=== PATIENT | male | born 1960 | race Caucasian/White ===

== ENCOUNTER 2022-09-02 10:06 | Inpatient (IN) | payer OTHER ==
[2022-09-02 10:28] VITALS: BMI 27.8
[2022-09-02] MEDS ORDERED: BENZOCAINE/MENTHOL (CHLORASEPTIC ) LOZENGE MM PRN (12:01)
[2022-09-02] MEDS ORDERED: ACETAMINOPHEN 325 MG TABLET (FP) PO PRN (12:01)
[2022-09-02] MEDS ORDERED: NALOXONE HCL 0.4 MG/ML VIAL IM PRN (12:01)
[2022-09-02] MEDS ORDERED: LOPERAMIDE HCL 2 MG CAPSULE PO PRN (12:01)
[2022-09-02] MEDS ORDERED: NALOXONE HCL (KLOXXADO) 8 MG SPRAY NS PRN (12:01)
[2022-09-02] MEDS ORDERED: hydrOXYzine PAMOATE 25 MG CAPSULE (FP) PO PRN (12:01)
[2022-09-02] MEDS ORDERED: IBUPROFEN 400 MG TABLET (FP) PO PRN (12:01)
[2022-09-02] MEDS ORDERED: METHOCARBAMOL 500 MG TABLET PO PRN (12:01)
[2022-09-02] MEDS ORDERED: guaiFENesin 600 MG TABLET.ER (FP) PO PRN (12:01)
[2022-09-02] MEDS ORDERED: BISMUTH SUBSALICYLATE 262 MG/15 ML BTL PO PRN (12:01)
[2022-09-02] MEDS ORDERED: NICOTINE 10 MG CARTRIDGE (INHALER) IH PRN (12:01)
[2022-09-02] MEDS ORDERED: POLYETHYLENE GLYCOL (HEALTHYLAX) 3350 17 GM PACKET PO PRN (12:01)
[2022-09-02] MEDS ORDERED: MAG HYDROX/AL HYDROX/SIMETH 30 ML UNIT-DOSE CUP PO PRN (12:01)
[2022-09-02] MEDS ORDERED: BENZONATATE 200 MG CAPSULE PO PRN (12:01)
[2022-09-02] MEDS ORDERED: DICYCLOMINE HCL 10 MG CAPSULE PO PRN (12:01)
[2022-09-02] MEDS ORDERED: chlordiazePOXIDE HCL 25 MG CAPSULE PO PRN (12:01)
[2022-09-02] MEDS ORDERED: ONDANSETRON *ODT* 4 MG TABLET SL PRN (12:01)
[2022-09-02] MEDS ORDERED: MAGNESIUM HYDROX 2400MG/30ML ORAL SUSPENSION 30 ML CUP PO PRN (12:01)
[2022-09-02] MEDS ORDERED: IBUPROFEN 600 MG TABLET (FP) PO PRN (12:01)
[2022-09-02] MEDS ORDERED: NICOTINE 14 MG/24 HOURS TOPICAL PATCH TD ONE (14:03)
[2022-09-02] MEDS ORDERED: PRENATAL VITAMINS W/ FOLIC ACID TABLET (FP) PO ONE (14:03)
[2022-09-02] MEDS: NICOTINE 14 MG/24 HOURS TOPICAL PATCH TD SCH (14:19)
[2022-09-02] MEDS: PRENATAL VITAMINS W/ FOLIC ACID TABLET (FP) PO SCH (14:19)
[2022-09-02 15:22] LABS: HEMATOCRIT 44.1 % (35.4-49); HEMOGLOBIN 14.3 GM/dL (11.7-16.9); MCH 26.3 pg (25.7-33.7); MCHC 32.5 g/dl (32.0-35.9); MEAN PLT VOLUME 8.3 fl (7.5-11.1); PLATELET COUNT 288 10^3/uL (134-434); RBC 5.44 M/mm3 (4.00-5.60); RDW 15.9 % (11.9-15.9); WHITE BLOOD COUNT 12.1 K/mm3 (4.0-10.0)
[2022-09-02 15:43] LABS: POTASSIUM 4.3 mmol/L (3.5-5.1)
[2022-09-02] MEDS ORDERED: chlordiazePOXIDE HCL 25 MG CAPSULE PO SCH (17:00)
[2022-09-02] MEDS: chlordiazePOXIDE HCL 25 MG CAPSULE PO SCH ×2 (17:24→22:22)
[2022-09-02 20:13] LABS: ALBUMIN 3.7 g/dl (3.4-5.0); BILIRUBIN,TOTAL 0.7 mg/dL (0.2-1); BLOOD UREA NITROGEN 15.7 mg/dL (7-18); CALCIUM 9.2 mg/dL (8.5-10.1); CREATININE 0.8 mg/dL (0.55-1.3); TOT PROT 6.8 g/dl (6.4-8.2)
[2022-09-02] MEDS: MELATONIN 5 MG TABLETS PO SCH (22:22)
[2022-09-02] MEDS: THIAMINE HCL 100 MG TABLET (FP) PO SCH (22:22)
[2022-09-03] MEDS: chlordiazePOXIDE HCL 25 MG CAPSULE PO SCH ×4 (05:18→22:10)
[2022-09-03] MEDS: NICOTINE 14 MG/24 HOURS TOPICAL PATCH TD SCH (10:20)
[2022-09-03] MEDS: PRENATAL VITAMINS W/ FOLIC ACID TABLET (FP) PO SCH (10:20)
[2022-09-03] MEDS: LACTULOSE 20 GM/30 ML UDC (FOR ORAL USE ONLY) PO SCH ×2 (18:25→22:10)
[2022-09-03] MEDS: INSULIN SLIDING SCALE (NOVOLOG) 1 VIAL SQ SCH ×2 (18:25→21:25)
[2022-09-03] MEDS: MELATONIN 5 MG TABLETS PO SCH (22:10)
[2022-09-03] MEDS: THIAMINE HCL 100 MG TABLET (FP) PO SCH (22:10)
[2022-09-04] MEDS: chlordiazePOXIDE HCL 25 MG CAPSULE PO SCH ×4 (05:44→22:07)
[2022-09-04] MEDS: INSULIN SLIDING SCALE (NOVOLOG) 1 VIAL SQ SCH ×4 (06:23→22:07)
[2022-09-04] MEDS: PRENATAL VITAMINS W/ FOLIC ACID TABLET (FP) PO SCH (10:36)
[2022-09-04] MEDS: NICOTINE 14 MG/24 HOURS TOPICAL PATCH TD SCH (10:37)
[2022-09-04] MEDS: LACTULOSE 20 GM/30 ML UDC (FOR ORAL USE ONLY) PO SCH ×4 (10:37→22:06)
[2022-09-04 12:01] LABS: BASO % 0.2 % (0-2.0); EOS % 0.4 % (0-4.5); HEMATOCRIT 41.8 % (35.4-49); HEMOGLOBIN 13.6 GM/dL (11.7-16.9); LYMPH % 14.1 % (8-40); MCH 26.2 pg (25.7-33.7); MCHC 32.6 g/dl (32.0-35.9); MEAN CELL VOLUME 80.3 fl (80-96); MEAN PLT VOLUME 8.7 fl (7.5-11.1); MONO % 8.9 % (3.8-10.2); NEUT % 76.4 % (42.8-82.8); PLATELET COUNT 259 10^3/uL (134-434); RBC 5.21 M/mm3 (4.00-5.60); RDW 16.1 % (11.9-15.9); WHITE BLOOD COUNT 15.3 K/mm3 (4.0-10.0)
[2022-09-04 15:46] LABS: PH,URINE 7.5 (5.0-8.0); URINE APPEARANCE CLEAR; URINE BILIRUBIN NEGATIVE (NEGATIVE); URINE COLOR YELLOW; URINE GLUCOSE (UA) NEGATIVE (NEGATIVE); URINE KETONE NEGATIVE (NEGATIVE); URINE LEUK ESTERASE NEGATIVE (NEGATIVE); URINE NITRITE NEGATIVE (NEGATIVE); URINE PROTEIN NEGATIVE (NEGATIVE)
[2022-09-04] MEDS: INSULIN (LEVEMIR) 100 UNITS/ML UNITS SQ SCH (22:06)
[2022-09-04] MEDS: THIAMINE HCL 100 MG TABLET (FP) PO SCH (22:07)
[2022-09-04] MEDS: MELATONIN 5 MG TABLETS PO SCH (22:07)
[2022-09-05] MEDS ORDERED: chlordiazePOXIDE HCL 10 MG CAPSULE PO PRN
[2022-09-05] MEDS: chlordiazePOXIDE HCL 10 MG CAPSULE PO SCH ×4 (05:34→22:22)
[2022-09-05] MEDS: INSULIN SLIDING SCALE (NOVOLOG) 1 VIAL SQ SCH ×4 (06:28→22:25)
[2022-09-05 10:05] LABS: BASO % 0.2 % (0-2.0); EOS % 1.4 % (0-4.5); HEMOGLOBIN 14.2 GM/dL (11.7-16.9); LYMPH % 17.1 % (8-40); MCHC 33.7 g/dl (32.0-35.9); MEAN PLT VOLUME 8.3 fl (7.5-11.1); MONO % 9.4 % (3.8-10.2); NEUT % 71.9 % (42.8-82.8); PLATELET COUNT 243 10^3/uL (134-434); RBC 5.25 M/mm3 (4.00-5.60); RDW 16.2 % (11.9-15.9)
[2022-09-05] MEDS: PRENATAL VITAMINS W/ FOLIC ACID TABLET (FP) PO SCH (10:39)
[2022-09-05] MEDS: LACTULOSE 20 GM/30 ML UDC (FOR ORAL USE ONLY) PO SCH ×4 (10:39→22:25)
[2022-09-05] MEDS: NICOTINE 14 MG/24 HOURS TOPICAL PATCH TD SCH (10:40)
[2022-09-05] MEDS: MELATONIN 5 MG TABLETS PO SCH (22:22)
[2022-09-05] MEDS: INSULIN (LEVEMIR) 100 UNITS/ML UNITS SQ SCH (22:22)
[2022-09-05] MEDS: THIAMINE HCL 100 MG TABLET (FP) PO SCH (22:22)
[2022-09-06] MEDS: chlordiazePOXIDE HCL 10 MG CAPSULE PO SCH ×2 (05:43→17:22)
[2022-09-06] MEDS: INSULIN SLIDING SCALE (NOVOLOG) 1 VIAL SQ SCH ×4 (06:25→22:03)
[2022-09-06] MEDS: PRENATAL VITAMINS W/ FOLIC ACID TABLET (FP) PO SCH (10:34)
[2022-09-06] MEDS: NICOTINE 14 MG/24 HOURS TOPICAL PATCH TD SCH (10:34)
[2022-09-06] MEDS: LACTULOSE 20 GM/30 ML UDC (FOR ORAL USE ONLY) PO SCH ×4 (10:37→22:06)
[2022-09-06] MEDS: THIAMINE HCL 100 MG TABLET (FP) PO SCH (22:03)
[2022-09-06] MEDS: MELATONIN 5 MG TABLETS PO SCH (22:03)
[2022-09-06] MEDS: INSULIN (LEVEMIR) 100 UNITS/ML UNITS SQ SCH (22:03)
[2022-09-07] MEDS ORDERED: chlordiazePOXIDE HCL 10 MG CAPSULE PO ONE (05:00)
[2022-09-07] MEDS: INSULIN SLIDING SCALE (NOVOLOG) 1 VIAL SQ SCH ×2 (07:08→10:19)
[2022-09-07 09:46] VITALS: BP 114/56; PULSE 71; RESP 17; TEMP 97.7
[2022-09-07] MEDS: PRENATAL VITAMINS W/ FOLIC ACID TABLET (FP) PO SCH (10:19)
[2022-09-07] MEDS: NICOTINE 14 MG/24 HOURS TOPICAL PATCH TD SCH (10:19)
[2022-09-07] MEDS: LACTULOSE 20 GM/30 ML UDC (FOR ORAL USE ONLY) PO SCH (10:19)
== END 2022-09-07 09:32 | disposition home or self-care (01) | DRG 774 ==
LOC: YASAS 10:06 → Y3N 12:17
PROVIDERS: ADMIT Allergy & Immunology; ATTEND Surgery
PROC: HZ2ZZZZ Detoxification Services for Substance Abuse Treatment (ICD-10-PCS; principal; 2022-09-02)
DX: F10.230 Alcohol dependence with withdrawal, uncomplicated (principal); F14.20 Cocaine dependence, uncomplicated; F17.210 Nicotine dependence, cigarettes, uncomplicated; D72.829 Elevated white blood cell count, unspecified; I10 Essential (primary) hypertension; Z79.4 Long term (current) use of insulin; E11.9 Type 2 diabetes mellitus without complications; S09.93XA Unspecified injury of face, initial encounter; Y04.2XXA Assault by strike against or bumped into by another person, initial encounter; Y92.238 Other place in hospital as the place of occurrence of the external cause; Z86.19 Personal history of other infectious and parasitic diseases; Z88.0 Allergy status to penicillin
CPT/HCPCS: 36415; 71046-TC-FY; 80053; 81003; 82140; 82962; 83036; 85025; 85027; 86593; 86780; 87086; 87635; 87811; 93005; 93010